=== PATIENT | male | born 1995 | race African-American/Black ===

== ENCOUNTER 2023-05-13 23:13 | Emergency (ER) | payer OTHER ==
[2023-05-14] MEDS ORDERED: Lidocaine 1% PF 5 ML VIAL ONE (02:14)
== END 2023-05-14 03:20 | disposition home or self-care (01) ==
LOC: ERS 23:13
DX: N49.2 Inflammatory disorders of scrotum (principal)
CPT/HCPCS: 54700; 87070; 87205; 99284

== ENCOUNTER 2024-02-22 23:06 | Emergency (ER) | payer OTHER, SELFPAY ==
[2024-02-22] MEDS ORDERED: Lidocaine 1% PF 5 ML VIAL ONE (23:54)
[2024-02-23] MEDS ORDERED: Ketorolac Tromethamine 30 MG (1 mL) VIAL ONE (00:36)
== END 2024-02-23 01:00 | disposition home or self-care (01) ==
LOC: ERS 23:06
DX: N49.2 Inflammatory disorders of scrotum (principal)
CPT/HCPCS: 10060; 87070; 87205; 96372; J1885